=== PATIENT | female | born 1990 | race Two or more races ===

== ENCOUNTER 2023-10-25 00:30 | Inpatient (IN) | payer OTHER ==
[~2023-10-25] VITALS: Ht 144.8 cm; Wt 85.7 kg
[2023-10-25] MEDS ORDERED: ACETAMINOPHEN 325 MG TAB PO ONE (01:00)
[2023-10-25] MEDS ORDERED: ONDANSETRON ODT 4 MG TAB PO ONE (01:00)
[2023-10-25 02:47] LABS: Basophils # (auto) 0 10 ^3/uL (0-0.2); Basophils % (auto) 0.1 % (0.0-2.0); Eosinophils # (auto) 0 10 ^3/uL (0-0.8); Hematocrit 39.7 % (36.0-46.0); Hemoglobin 13.5 g/dL (12.2-16.2); Lymphocytes # (auto) 1.1 10 ^3/uL (0.4-5.4); Lymphocytes % (auto) 7.3 % (10.0-50.0); Mean Corpuscular Hemoglobin 31.2 pg (28.0-32.0); Mean Corpuscular Volume 91.8 fL (80.0-100.0); Monocytes # (auto) 0.7 10 ^3/uL (0-1.3); Monocytes % (auto) 4.7 % (0.0-12.0); Neutrophils # (auto) 13.6 10 ^3/uL (1.6-8.6); Neutrophils % (auto) 87.9 % (37.0-80.0); Platelet Count (auto) 244 10^3/uL (140-450); Red Blood Cells 4.32 10^6/uL (4.0-5.20); Red Cell Distribution Width 13.8 % (11.8-14.3); White Blood Cell 15.5 10^3/uL (4.4-10.8)
[2023-10-25 02:56] LABS: Alanine Aminotransferase 36 U/L (7-40); Albumin 4.3 g/dL (3.2-4.8); Alkaline Phosphatase 76 U/L (46-116); Anion Gap 6 (5-15); Aspartate Aminotransferase 28 U/L (13-40); BUN/Creatinine Ratio 11.4 (10.0-20.0); Blood Urea Nitrogen 10 mg/dL (9-23); Calcium 9.5 mg/dL (8.7-10.4); Carbon Dioxide 27 mmol/L (20-30); Chloride 104 mmol/L (98-107); Glucose 135 mg/dL (74-106); Lipase 37 U/L (12-53); Potassium 3.5 mmol/L (3.5-5.1); Sodium 137 mmol/L (136-145)
[2023-10-25 02:57] LABS: Bilirubin, Total 1.1 mg/dL (0.2-1.0); Total Protein 7.7 g/dL (5.7-8.2)
[2023-10-25 03:30] LABS: Urine Bacteria None Seen /hpf (None Seen)
[2023-10-25 03:39] LABS: Urine Blood 3+ /uL (Negative); Urine Clarity Clear (Clear); Urine Color Yellow (Yellow); Urine Protein, UAD 1+ (Negative); Urine Specific Gravity 1.023 (1.001-1.035); Urine Urobilinogen Normal (Negative); Urine WBC 2 /hpf (0 - 5); Urine pH 5.5 (5.0-9.0)
[2023-10-25] MEDS: IOHEXOL 350 MG/ML 100ML IJ ONE (06:27)
[2023-10-25] MEDS: cefTRIAXone 1GM/50ML D5W 50 ML IV ONE (06:38)
[2023-10-25] MEDS: MORPHINE SULFATE 4 MG/ML SYR/VIAL IV ONE (06:39)
[2023-10-25] MEDS: ONDANSETRON HCL 4 MG/2 ML VIAL IV ONE (06:39)
[2023-10-25] MEDS ORDERED: DOCUSATE SOD 100 MG CAP PO PRN (12:45)
[2023-10-25] MEDS ORDERED: MORPHINE SULFATE INJ 2 MG/ml SYRG IV PRN (12:45)
[2023-10-25] MEDS ORDERED: ONDANSETRON HCL 4 MG/2 ML VIAL IV PRN (12:45)
[2023-10-25] MEDS ORDERED: NITROGLYCERIN 0.4 MG SL TAB SL PRN (12:45)
[2023-10-25] MEDS ORDERED: HYDROmorphone HCL 2 MG/ML VL/or syr IV PRN (12:45)
[2023-10-25] MEDS ORDERED: HYDROcodone-ACET 5/325MG TAB PO PRN (12:45)
[2023-10-25] MEDS: COLCHICINE 0.6 MG CAP PO ONE (13:21)
[2023-10-25] MEDS: LACTATED RINGER'S 1,000 ML IV ONE (13:35)
[2023-10-25] MEDS: PIPERACILLIN-TAZOB 3.375GM 100 ML IV SCH (13:35)
[2023-10-25] MEDS: SODIUM CHLOR 0.9% PF (SALINE LOCK) 10ML VIAL/SYR IV SCH (13:47)
[2023-10-25] MEDS: COLCHICINE 0.6 MG CAP PO SCH (13:48)
[2023-10-25 15:13] LABS: COVID19 ANTIGEN SOFIA FIA NEGATIVE (NEGATIVE); Rapid Influenza A Negative (Negative); Rapid Influenza B Negative (Negative)
[2023-10-25 15:14] LABS: Rapid Strep A Screen-Throat Negative
[2023-10-25 15:24] LABS: Erythrocyte Sedimentation Rate 35 mm/hr (0-20)
[2023-10-25 17:49] VITALS: BP 123/75; PULSE 112; RESP 18; TEMP 99; O2SAT 96
[2023-10-25] MEDS ORDERED: PRED10TA PO (17:56)
[2023-10-25] MEDS ORDERED: HYDR-4491 PO (17:57)
[2023-10-25] MEDS ORDERED: DEXTROSE (50%) 50ML SYRG IV PRN (18:15)
[2023-10-25 20:00] VITALS: PULSE 107; RESP 20
[2023-10-25 21:00] VITALS: BP 117/70; PULSE 117; RESP 19; TEMP 99.1; O2SAT 95
[2023-10-25] MEDS: InsuLIN REG 1unit/0.01ml Soln (100units/ml) SC SCH (21:39)
[2023-10-25] MEDS: ACCU-CHEK COMFORT CURVE STRIP VI SCH (23:19)
[2023-10-26] VITALS (7 sets, daily range): BP systolic 100–116; BP diastolic 58–69; PULSE 87–111; RESP 16–19; TEMP 97.9–98.6; O2SAT 95–99
[2023-10-26 07:08] LABS: Alanine Aminotransferase 24 U/L (7-40); Albumin 3.8 g/dL (3.2-4.8); Alkaline Phosphatase 52 U/L (46-116); Anion Gap 8 (5-15); Aspartate Aminotransferase 23 U/L (13-40); BUN/Creatinine Ratio 6.4 (10.0-20.0); Blood Urea Nitrogen 5 mg/dL (9-23); Calcium 8.9 mg/dL (8.7-10.4); Carbon Dioxide 24 mmol/L (20-30); Chloride 103 mmol/L (98-107); Glucose 127 mg/dL (74-106); Magnesium 1.7 mg/dL (1.6-2.6); Potassium 3.6 mmol/L (3.5-5.1); Sodium 135 mmol/L (136-145)
[2023-10-26 07:09] LABS: Bilirubin, Total 1.8 mg/dL (0.2-1.0); Total Protein 7.2 g/dL (5.7-8.2)
[2023-10-26 07:21] LABS: Basophils # (auto) 0 10 ^3/uL (0-0.2); Basophils % (auto) 0.3 % (0.0-2.0); Eosinophils # (auto) 0 10 ^3/uL (0-0.8); Eosinophils % (auto) 0.1 % (0.0-7.0); Hemoglobin 12.3 g/dL (12.2-16.2); Lymphocytes % (auto) 16.3 % (10.0-50.0); Mean Corpuscular Hemoglobin 31.5 pg (28.0-32.0); Mean Corpuscular Hgb Conc. 34.2 g/dL (32.0-36.0); Mean Corpuscular Volume 92.2 fL (80.0-100.0); Monocytes # (auto) 0.8 10 ^3/uL (0-1.3); Monocytes % (auto) 13.1 % (0.0-12.0); Neutrophils # (auto) 4.2 10 ^3/uL (1.6-8.6); Neutrophils % (auto) 70.2 % (37.0-80.0); Nucleated Red Blood Cells % 0.2 %; Platelet Count (auto) 204 10^3/uL (140-450); Red Blood Cells 3.91 10^6/uL (4.0-5.20); Red Cell Distribution Width 13.9 % (11.8-14.3)
[2023-10-26] MEDS: GADOTERATE MEG 10 MMOL/20ml INJ (0.5MMOL/ml) IV ONE (07:59)
[2023-10-26] MEDS: ENOXAPARIN SOD 40 MG/0.4 ML SYRINGE SC SCH (10:37)
[2023-10-26] MEDS: predniSONE 5 MG TAB PO ONE (14:58)
[2023-10-26] MEDS: ACETAMINOPHEN 325 MG TAB PO PRN (20:33)
[2023-10-27 05:00] VITALS: BP 106/64; PULSE 92; RESP 20; TEMP 97.5; O2SAT 99
[2023-10-27 06:32] LABS: Basophils # (auto) 0 10 ^3/uL (0-0.2); Basophils % (auto) 0.4 % (0.0-2.0); Eosinophils # (auto) 0 10 ^3/uL (0-0.8); Eosinophils % (auto) 0.6 % (0.0-7.0); Hematocrit 37.2 % (36.0-46.0); Hemoglobin 12.8 g/dL (12.2-16.2); Lymphocytes # (auto) 0.7 10 ^3/uL (0.4-5.4); Lymphocytes % (auto) 13.2 % (10.0-50.0); Mean Corpuscular Hemoglobin 31.5 pg (28.0-32.0); Mean Corpuscular Hgb Conc. 34.4 g/dL (32.0-36.0); Mean Corpuscular Volume 91.7 fL (80.0-100.0); Monocytes # (auto) 0.5 10 ^3/uL (0-1.3); Monocytes % (auto) 9.4 % (0.0-12.0); Neutrophils # (auto) 4.1 10 ^3/uL (1.6-8.6); Neutrophils % (auto) 76.4 % (37.0-80.0); Nucleated Red Blood Cells % 0.2 %; Platelet Count (auto) 209 10^3/uL (140-450); Red Blood Cells 4.06 10^6/uL (4.0-5.20); Red Cell Distribution Width 13.6 % (11.8-14.3); White Blood Cell 5.3 10^3/uL (4.4-10.8)
[2023-10-27 06:33] LABS: Alanine Aminotransferase 34 U/L (7-40); Alkaline Phosphatase 51 U/L (46-116); Anion Gap 9 (5-15); Aspartate Aminotransferase 33 U/L (13-40); Blood Urea Nitrogen 8 mg/dL (9-23); Calcium 9.3 mg/dL (8.7-10.4); Carbon Dioxide 23 mmol/L (20-30); Chloride 105 mmol/L (98-107); Glucose 94 mg/dL (74-106); Potassium 3.6 mmol/L (3.5-5.1); Sodium 137 mmol/L (136-145)
[2023-10-27 06:34] LABS: Bilirubin, Total 1.3 mg/dL (0.2-1.0); Total Protein 7.6 g/dL (5.7-8.2)
[2023-10-27 08:00] VITALS: PULSE 76; PULSE 85; RESP 16; O2SAT 98
[2023-10-27 09:00] VITALS: BP 102/66; PULSE 85; RESP 16; TEMP 98.2; O2SAT 98
[2023-10-27] MEDS: predniSONE 5 MG TAB PO SCH (10:41)
[2023-10-27] MEDS: PANTOPRAZOLE 40 MG/10 ML VIAL INJ IV ONE (10:42)
[2023-10-27] MEDS: hydrOXYchloroQUINE SULFATE 200 MG TAB PO SCH (10:42)
[2023-10-27 12:50] VITALS: BP 134/80; PULSE 98; RESP 16; TEMP 98; O2SAT 100
[2023-10-27] MEDS ORDERED: PRE5T PO (15:00)
[2023-10-27] MEDS ORDERED: ACET-1882 PO (15:00)
[2023-10-27] MEDS ORDERED: COLC1CAP PO (15:00)
[2023-10-27] MEDS ORDERED: PANT40T PO (15:00)
[2023-10-27 17:00] VITALS: BP 121/69; PULSE 93; RESP 14; TEMP 97.5; O2SAT 97
[2023-10-27 17:05] VITALS: BP 121/69; PULSE 93; RESP 14; TEMP 97.5; O2SAT 97
[2023-10-28] MEDS ORDERED: PANTOPRAZOLE 40 MG/10 ML VIAL INJ IV SCH (07:00)
== END 2023-10-27 18:40 | disposition home or self-care (01) | DRG 346 ==
LOC: EDSEX 00:30 → ER 00:30 → TELE 12:42 → TELE-WESTW 17:34
PROVIDERS: ADMIT Internal Medicine; ATTEND Internal Medicine
DX: M32.9 Systemic lupus erythematosus, unspecified (principal); M87.851 Other osteonecrosis, right femur; K76.0 Fatty (change of) liver, not elsewhere classified; K29.70 Gastritis, unspecified, without bleeding; Z20.822 Contact with and (suspected) exposure to COVID-19; E11.9 Type 2 diabetes mellitus without complications; J98.11 Atelectasis; N92.6 Irregular menstruation, unspecified; E66.01 Morbid (severe) obesity due to excess calories; Z83.3 Family history of diabetes mellitus; Z79.4 Long term (current) use of insulin; Z79.899 Other long term (current) drug therapy; Z68.41 Body mass index [BMI] 40.0-44.9, adult
CPT/HCPCS: 36415; 71045; 71275; 73723; 74176; 80053; 81001; 82962; 83036; 83605; 83690; 83735; 83880; 84443; 84484; 84702; 85025; 85379; 85652; 86141; 87040; 87070; 87426; 87804; 87880; 93005; 93306; 96361; 96365; G0378; J1815; J2470; J2543